=== PATIENT | female | born 1965 | race Caucasian/White ===

== ENCOUNTER 2019-03-21 08:45 | Emergency (ER) | payer OTHER ==
[2019-03-21 09:50] LABS: Absolute Lymphocytes (CBC) 1.3 K/uL (0.7-4.9); Absolute Monocytes 0.3 K/uL (0.1-1.3); Absolute Neutrophil 1.8 K/uL (1.8-8.0); Basophils % 1.2 % (0-1.3); Eosinophils % 5.3 % (0-4.4); Hematocrit 38.6 % (36.0-45.0); Lymphocytes % 36.2 % (15.3-44.8); Monocytes % 8.8 % (3.3-12.3); RBC Red Blood Cell Count 4.35 M/uL (3.86-4.86)
[2019-03-21 09:51] LABS: Protime INR 0.96
[2019-03-21] MEDS ORDERED: FUROSEMIDE 40 MG/4 ML VIAL ONE (10:10)
--- NOTE | 2019-03-21 10:31 | RAD REPORT ---
EXAM DESCRIPTION: Yen Single View03/21/2019 9:36 am CLINICAL HISTORY: sob COMPARISON: none FINDINGS: The lungs appear clear of acute infiltrate. The heart is normal size IMPRESSION: No acute abnormalities displayed
[2019-03-21 10:32] LABS: ALT/SGPT 49 U/L (12-78); AST/SGOT 41 U/L (15-37); Albumin 3.8 g/dL (3.4-5.0); Alkaline Phosphatase 31 U/L (45-117); BUN Blood Urea Nitrogen 19 mg/dL (7-18); Bicarbonate 26 mmol/L (21-32); Bilirubin Direct < 0.1 mg/dL (0-0.2); Bilirubin Total 0.3 mg/dL (0.2-1.0); Glucose Level 113 mg/dL (74-106); Magnesium 2.1 mg/dL (1.8-2.4); NT PRO-BNP 70 pg/mL (<125); Potassium 3.6 mmol/L (3.5-5.1); Protein, Total 7.5 g/dL (6.4-8.2); Sodium Level 142 mmol/L (136-145); Troponin (Emerg Dept Use Only) < 0.02 ng/mL (0.0-0.045)
--- NOTE | 2019-03-21 10:39 | RAD REPORT ---
EXAM DESCRIPTION: US - Extrem Venous W Compress Ceferino - 03/21/2019 10:33 am CLINICAL HISTORY: Bilateral leg pain and swelling COMPARISON: None. TECHNIQUE: Real-time sonographic evaluation of the bilateral lower extremity common femoral, superfi cial femoral, popliteal and posterior tibial veins was performed. FINDINGS: Normal compressibility, flow augmentation, phasic flow and spontaneous flow are identified in the left and right lower extremity common femoral, superficial femoral, popliteal and posterior t ibial veins. No intraluminal filling defects seen. IMPRESSION: No DVT in either lower extremity.
--- NOTE | 2019-03-21 11:02 | RAD REPORT ---
EXAM DESCRIPTION: CT - Chest For Pe Angio - 03/21/2019 10:48 am CLINICAL HISTORY: Leg swelling/shortness of breath/tachycardia COMPARISON: None. TECHNIQUE: Dynamically enhanced axial 3 mm thick images of the chest were obtained during administra tion of <100> mL Isovue 370 IV contrast. Coronal and oblique reconstruction images were generated and reviewed. Exam utilizes a protocol for optimal evaluation of pulmonary arterial tree. Maximum intensity projections 3D imaging was utilized All CT scans are performed using dose optimization technique as appropriate and may include automated exposure control or mA/KV adjustment according to patient size. FINDINGS: A pulmonary embolus is not seen. A thoracic aortic aneurysm is not noted. A pleural effusion is not seen. A pericardial effusion is not seen. A lung consolidation is not present. Fatty liver. Cholelithiasis without gallbladder wall thickening IMPRESSION: Negative for a pulmonary embolism. Cholelithiasis without gallbladder wall thickening
--- NOTE | 2019-03-21 11:24 | EDPHYS ---
Physician Documentation [facility] Name: Mili Colon Age: 53 yrs Sex: Female : 1965 Arrival Date: 03/21/2019 Time: 08:48 Bed 7 Private MD: ED Physician Alberto Hope HPI: 03/21 09:22 This 53 yrs old Female presents to ER via Ambulatory with complaints of Leg kdr Swelling, Feet Swelling. 09:22 The patient states that she has had intermittent but persistently worsening swelling to kdr both lower extremities since February. She has not had a prior evaluation. States that her legs feel generally sore and tight. She denies SOB/CP or any other cardiopulmonary concerns. She only takes Lisinopril/HCTZ. Onset: The symptoms/episode began/occurred gradually, Since early February. Severity of symptoms: At their worst the symptoms were mild in the emergency department the symptoms are unchanged. The patient has not recently seen a physician. 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 - Social history:: Smoking status: Patient/guardian denies using tobacco. - Ebola Screening: : No symptoms or risks identified at this time. ROS: 09:22 Constitutional: Negative for fever, chills, and weight loss, Eyes: Negative for injury, kdr pain, redness, and discharge, ENT: Negative for injury, pain, and discharge, Neck: Negative for injury, pain, and swelling, Cardiovascular: Negative for chest pain, palpitations, and edema, Respiratory: Negative for shortness of breath, cough, wheezing, and pleuritic chest pain, Abdomen/GI: Negative for abdominal pain, nausea, vomiting, diarrhea, and constipation, Back: Negative for injury and pain, : Negative for injury, bleeding, discharge, and swelling, Skin: Negative for injury, rash, and discoloration, Neuro: Negative for headache, weakness, numbness, tingling, and seizure activity. Psych: Negative for depression, anxiety, suicide ideation, homicidal ideation, and hallucinations, Allergy/Immunology: Negative for hives, rash, and allergies, Endocrine: Negative for neck swelling, polydipsia, polyuria, polyphagia, and marked weight changes, Hematologic/Lymphatic: Negative for swollen nodes, abnormal bleeding, and unusual bruising. 09:22 MS/extremity: Positive for swelling, Both lower extremities L > R. Exam: :22 Constitutional: This is a well developed, well nourished patient who is awake, alert, kdr and in no acute distress. Head/Face: Normocephalic, atraumatic. Eyes: Pupils equal round and reactive to light, extra-ocular motions intact. Lids and lashes normal. Conjunctiva and sclera are non-icteric and not injected. Cornea within normal limits. Periorbital areas with no swelling, redness, or edema. Neck: Trachea midline, no thyromegaly or masses palpated, and no cervical lymphadenopathy. Supple, full range of motion without nuchal rigidity, or vertebral point tenderness. No Meningismus. Chest/axilla: Normal chest wall appearance and motion. Nontender with no deformity. No lesions are appreciated. Cardiovascular: Regular rate and rhythm with a normal S1 and S2. No gallops, murmurs, or rubs. Normal PMI, no JVD. No pulse deficits. Respiratory: Lungs have equal breath sounds bilaterally, clear to auscultation and percussion. No rales, rhonchi or wheezes noted. No increased work of breathing, no retractions or nasal flaring. Abdomen/GI: Soft, non-tender, with normal bowel sounds. No distension or tympany. No guarding or rebound. No evidence of tenderness throughout. Back: No spinal tenderness. No costovertebral tenderness. Full range of motion. Skin: Warm, dry with normal turgor. Normal color with no rashes, no lesions, and no evidence of cellulitis. Neuro: Awake and alert, GCS 15, oriented to person, place, time, and situation. Cranial nerves II-XII grossly intact. Motor strength 5/5 in all extremities. Sensory grossly intact. Cerebellar exam normal. Normal gait. Psych: Awake, alert, with orientation to person, place and time. Behavior, mood, and affect are within normal limits. 09:22 Musculoskeletal/extremity: DVT Exam: no pain, negative Homans' sign noted on exam, no appreciated bluish discoloration, no erythema, swelling, that is mild, of the right leg, of the left leg, tenderness, that is mild, of the right leg, of the left leg. Vital Signs: 09:01 BP 139 / 87; Pulse 121; Resp 16; Temp 97.8; Pulse Ox 98% on R/A; Weight 81.65 kg; hb Height 5 ft. 9 in. (175.26 cm); Pain 0/10; 10:21 BP 111 / 83; Pulse 104; Resp 18; Pulse Ox 99% on R/A; ph 11:30 BP 125 / 78; Pulse 87; Resp 18; Temp 97.8; Pulse Ox 100% on R/A; Pain 0/10; ph 09:01 Body Mass Index 26.58 (81.65 kg, 175.26 cm) hb MDM: 09:22 Data reviewed: vital signs, nurses notes, lab test result(s), radiologic studies. kdr 10:12 Physician consultation: Haider Grace MD was called at 10:12, was contacted at 10:12, [facility] regarding consult, patient's condition, need to evaluate the patient as soon as possible, and will see patient in inpatient room, later today. 11:20 Special discussion: I discussed with the patient/guardian in detail that at this point kdr there is no indication for admission to the hospital. It is understood, however, that if the symptoms persist or worsen the patient needs to return immediately for re-evaluation. ED course: The patient improved significantly and VS improved. She had no further c/o or concerns . 11:23 Patient medically screened. kdr 03/21 09:21 Order name: Basic Metabolic Panel kdr 03/21 09:21 Order name: CBC with Diff kdr 03/21 09:21 Order name: LFT's; Complete Time: 10:50 kdr 03/21 09:21 Order name: Magnesium; Complete Time: 10:50 kdr 03/21 09:21 Order name: NT PRO-BNP; Complete Time: 10:50 kdr 03/21 09:21 Order name: PT-INR; Complete Time: 09:55 kdr 03/21 09:21 Order name: Troponin (emerg Dept Use Only); Complete Time: 10:50 kdr 03/21 09:21 Order name: XRAY Chest (1 view); Complete Time: 10:50 [facility] 03/21 09:21 Order name: DD; Complete Time: 09:55 kdr 03/21 09:21 Order name: US Extremity Venous W Compression Ceferino; Complete Time: 10:50 [facility] 03/21 09:23 Order name: Basic Metabolic Panel; Complete Time: 10:50 EDFL 03/21 09:23 Order name: CBC with Automated Diff; Complete Time: 09:55 EDMS 03/21 09:56 Order name: CT Chest For PE Angio; Complete Time: 11:20 kdr 03/21 09:21 Order name: EKG; Complete Time: 09:23 [facility] 03/21 09:21 Order name: Cardiac monitoring; Complete Time: 09:51 [facility] 03/21 09:21 Order name: EKG - Nurse/Tech; Complete Time: 09:51 [facility] 03/21 09:21 Order name: IV Saline Lock; Complete Time: 09:32 [facility] 03/21 09:21 Order name: Labs collected and sent; Complete Time: 09:32 kdr 03/21 09:21 Order name: O2 Per Protocol; Complete Time: 09:26 kdr 03/21 09:21 Order name: O2 Sat Monitoring; Complete Time: 09:26 kdr Administered Medications: 10:00 Drug: Lasix 40 mg Route: IVP; Site: right forearm; ph 11:30 Follow up: Response: No adverse reaction ph Disposition: 03/21/19 11:23 Discharged to Home. Impression: Edema, unspecified - Bilateral lower extremities.. - Condition is Stable. - Discharge Instructions: Edema, [id number], Peripheral Edema. - Prescriptions for Lasix 20 mg Oral Tablet - take 1 tablet by ORAL route once daily; 20 tablet. - Medication Reconciliation Form, Thank You Letter form. - Follow up: Private Physician; When: 2 - 3 days; Reason: If symptoms return, Further diagnostic work-up, Recheck today's complaints, Continuance of care, Re-evaluation by your physician. - Problem is an ongoing problem. - Symptoms have improved. Signatures: Dispatcher [employer] EDAlberto Johnson MD MD kdr Rossy Kennedy RN RN ph Zuleyka Gupta RN RN Corrections: (The following items were deleted from the chart) 11:51 11:23 03/21/2019 11:23 Discharged to Home. Impression: Edema, unspecified - Bilateral ph lower extremities.. Condition is Stable. Forms are Medication Reconciliation Form, Thank You Letter, Antibiotic Education, Prescription Opioid Use. Follow up: Private Physician; When: 2 - 3 days; Reason: If symptoms return, Further diagnostic work-up, Recheck today's complaints, Continuance of care, Re-evaluation by your physician. Problem is an ongoing problem. Symptoms have improved. kdr
--- NOTE | 2019-03-21 11:24 | ER ---
Nurse's Notes [facility] Name: Mili Colon Age: 53 yrs Sex: Female : 1965 Arrival Date: 03/21/2019 Time: 08:48 Bed 7 Private MD: Diagnosis: Edema, unspecified-Bilateral lower extremities. Presentation: 03/21 08:55 Presenting complaint: Bilateral lower leg and feet swelling x 3 weeks, worse over last hb few days. Transition of care: patient was not received from another setting of care. Onset of symptoms is unknown. Risk Assessment: Do you want to hurt yourself or someone else? Patient reports no desire to harm self or others. Initial Sepsis Screen: Does the patient meet any 2 criteria? No. Patient's initial sepsis screen is negative. Does the patient have a suspected source of infection? No. Patient's initial sepsis screen is negative. Care prior to arrival: None. 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 - Social history:: Smoking status: Patient/guardian denies using tobacco. - Ebola Screening: : No symptoms or risks identified at this time. Screenin:11 Abuse screen: Denies threats or abuse. Denies injuries from another. Nutritional ph screening: No deficits noted. Tuberculosis screening: No symptoms or risk factors identified. Fall Risk None identified. Assessment: 09:12 General: Appears in no apparent distress. comfortable, well groomed, Behavior is calm, ph cooperative, appropriate for age. Pain: Denies pain. Neuro: Level of Consciousness is awake, alert, obeys commands, Oriented to person, place, time, situation. Cardiovascular: Denies chest pain, fatigue, lightheadedness, shortness of breath, Capillary refill < 3 seconds in bilateral fingers toes Patient's skin is warm and dry. Edema is 1+ to right ankle, right foot and right toes. Cardiovascular: Edema is 2+ to left ankle, left foot and left toes. Respiratory: Airway is patent Respiratory effort is even, unlabored, Respiratory pattern is regular, symmetrical, Breath sounds are clear bilaterally. Denies shortness of breath at rest, on exertion. GI: No signs and/or symptoms were reported involving the gastrointestinal system. Derm: Skin is intact, is healthy with good turgor, Skin is pink, warm \T\ dry. Musculoskeletal: Circulation, motion, and sensation intact. Range of motion: intact in all extremities. 10:21 Reassessment: Patient appears in no apparent distress at this time. Patient and/or ph family updated on plan of care and expected duration. Pain level reassessed. Patient is alert, oriented x 3, equal unlabored respirations, skin warm/dry/pink. Pt resting quietly, awaiting lab results, VSS, family at bedside. Vital Signs: 09:01 BP 139 / 87; Pulse 121; Resp 16; Temp 97.8; Pulse Ox 98% on R/A; Weight 81.65 kg; hb Height 5 ft. 9 in. (175.26 cm); Pain 0/10; 10:21 BP 111 / 83; Pulse 104; Resp 18; Pulse Ox 99% on R/A; ph 11:30 BP 125 / 78; Pulse 87; Resp 18; Temp 97.8; Pulse Ox 100% on R/A; Pain 0/10; ph 09:01 Body Mass Index 26.58 (81.65 kg, 175.26 cm) hb ED Course: 08:48 Patient arrived in ED. mr 08:56 Triage completed. hb 09:00 Rossy Kennedy, RN is Primary Nurse. ph 09:01 Arm band placed on. hb 09:08 Alberto Hope MD is Attending Physician. kdr 09:12 Patient has correct armband on for positive identification. Bed in low position. Call ph light in reach. Side rails up X 1. Pulse ox on. NIBP on. Door closed. Noise minimized. Head of bed elevated. 09:32 Initial lab(s) drawn, by me, sent to lab. Inserted saline lock: 20 gauge in right dh3 wrist, using aseptic technique. Blood collected. 09:36 XRAY Chest (1 view) In Process Unspecified. EDMS 10:36 US Extremity Venous W Compression Ceferino In Process Unspecified. EDMS 10:50 CT Chest For PE Angio In Process Unspecified. EDMS 11:50 No provider procedures requiring assistance completed. IV discontinued, intact, ph bleeding controlled, No redness/swelling at site. Pressure dressing applied. Administered Medications: 10:00 Drug: Lasix 40 mg Route: IVP; Site: right forearm; ph 11:30 Follow up: Response: No adverse reaction ph Outcome: 11:23 Discharge ordered by . kdr 11:51 Patient left the ED. ph 11:51 Discharged to home ambulatory. ph 11:51 Condition: good 11:51 Discharge instructions given to patient, Instructed on discharge instructions, follow up and referral plans. medication usage, Demonstrated understanding of instructions, follow-up care, medications, Prescriptions given X 1. Signatures: Dispatcher [employer] EDMS Alberto Hope MD MD [facility] Peggy Soliz Patricia, RN RN Zuleyka Gupta RN RN [place], [place] [id number]
--- NOTE | 2019-03-21 14:01 | EKG ---
Test Date: 2019-03-21 Test Time: 09:49:52 Cd Mixer: DT/Charlette MEASUREMENT RESULTS: Intervals: Rate: 91 ND: 156 QRSD: 80 QT: 370 QTc: 455 [place]: P: 35 ND: 156 QRS: -1 T: 46 INTERPRETIVE STATEMENTS: Normal sinus rhythm Normal ECG No previous ECG available for comparison Electronically Signed On 03-21-19 14:01:18 CDT by Josue Flynn
== END 2019-03-21 11:51 | disposition home or self-care (01) ==
LOC: ER 08:45
DX: R60.0 Localized edema (principal); I10 Essential (primary) hypertension; Z88.0 Allergy status to penicillin
CPT/HCPCS: 36415; 71045; 71275; 80048; 80076; 83735; 83880; 84484; 85025; 85379; 85610; 93005; 93970; 96374; 99284; J1940; Q9967